=== PATIENT | female | born 1990 | race American Indian/Alaskan Native ===

== ENCOUNTER 2016-09-09 01:59 | Emergency (ER) | payer BC ==
[2016-09-09 02:15] VITALS: BP 154/102
== END 2016-09-09 07:28 | disposition left against medical advice (07) ==
LOC: ED 01:59
DX: M54.2 Cervicalgia (principal); H92.01 Otalgia, right ear; I10 Essential (primary) hypertension; Z53.21 Procedure and treatment not carried out due to patient leaving prior to being seen by health care provider